=== PATIENT | male | born 1995 | race Caucasian/White ===

== ENCOUNTER 2021-11-27 09:59 | Emergency (ER) | payer OTHER ==
[~2021-11-27] VITALS: Ht 172.7 cm; Wt 73.4 kg
--- NOTE | 2021-11-27 10:32 | PHYS DOC ---
Past History Past Surgical History: Other Additional Past Surgical Histo: JAW FX REPAIR Additional Smoking Information: 1/2 PACK Alcohol Use: Rarely General Adult EDM: Chief Complaint: UPPER EXTREMITY PAIN HPI: HPI: Patient is a 26-year-old male who presents to the emergency department for right shoulder and elbow pain after falling yesterday. Patient reports that he tripped in the yard and fell. Patient is rating his pain 6 out of 10. No treatment prior to arrival. Patient had a positive Covid exposure and woke up today with generalized body aches, nonproductive cough, nausea, headache. Patient denies any fevers, shortness of breath. He denies any decreased sensation in his extremity but reports decreased extension of his right elbow. Review of Systems: Review of Systems: 14 body systems of the review of systems have been reviewed. See HPI for pertinent positive and negative responses, otherwise all other systems are negative, nonpertinent or noncontributory Allergies: Allergies: Allergies Coded Allergies Type Severity Reaction Last Updated Verified No Known Drug Allergies 11/27/21 No Physical Exam: PE: Constitutional: Well developed, well nourished, no acute distress, non-toxic appearance. [] HENT: Normocephalic, atraumatic, bilateral external ears normal, oropharynx moist, no oral exudates, nose normal. [] Eyes: PERRL, EOMI, conjunctiva normal, no discharge. [] Neck: Normal range of motion, no tenderness, supple, no stridor. [] Cardiovascular:Heart rate regular rhythm, no murmur [] Lungs & Thorax: Bilateral breath sounds clear to auscultation [] Abdomen: Bowel sounds normal, soft, no tenderness, no masses, no pulsatile masses. [] Skin: Warm, dry, no erythema, no rash. [] Back: Normal range of motion Extremities: No tenderness, no cyanosis, no clubbing, ROM intact, no edema. [] Right upper extremity: Pain with palpation to right scapula, no obvious deformity, decreased extension to right elbow, range of motion intact shoulder and wrist, neuro intact Neurologic: Alert and oriented X 3, normal motor function, normal sensory function, no focal deficits noted. [] Psychologic: Affect normal, judgement normal, mood normal. [] Current Patient Data: Vital Signs: Vital Signs Date Time Temp Pulse Resp B/P (MAP) Pulse Ox O2 Delivery O2 Flow Rate FiO2 11/27/21 10:10 98.4 100 20 123/72 (89) 98 Room Air EKG: EKG: [] Radiology/Procedures: Radiology/Procedures: []PROCEDURE: SHOULDER 2+V RIGHT EXAMINATION: XR SHOULDER_RIGHT 2+ VIEWS CLINICAL HISTORY: Fall. TECHNIQUE: XR SHOULDER_RIGHT 2+ VIEWS COMPARISON: None FINDINGS/ IMPRESSION: Glenohumeral and acromioclavicular joints maintained no definitive evidence of acute fracture. Subtle irregular density projected along the medial aspect of the proximal humeral diaphysis only visualized on image 2, nonspecific. Mild soft tissue swelling overlying the acromioclavicular joint. Electronically signed by: Johnson Graham DO (11/27/2021 12:16 PM) [id number] DICTATED AND SIGNED BY: JOHNSON GRAHAM DO DATE: 11/27/21 1211 CC: MAGGIE BURROWS MD; MAINOR [employer] APRN ~MTH0 0 PROCEDURE: ELBOW RIGHT 3V EXAMINATION: XR ELBOW COMPLETE_RIGHT 3+ VIEWS CLINICAL HISTORY: Fall. TECHNIQUE: XR ELBOW COMPLETE_RIGHT 3+ VIEWS COMPARISON: None FINDINGS/ IMPRESSION: Joint spaces and alignment maintained. No acute fracture. Soft tissue swelling along the posterior aspect of the distal arm and elbow without evidence of joint effusion. Electronically signed by: Johnson Graham DO (11/27/2021 12:18 PM) [id number] DICTATED AND SIGNED BY: JOHNSON GRAHAM DO DATE: 11/27/21 1216 CC: MAGGIE BURROWS MD; MAINOR [employer] APRN ~MTH0 0 Heart Score: C/O Chest Pain: N/A Risk Factors: Risk Factors: DM, Current or recent (<one month) smoker, HTN, HLP, family history of CAD, obesity. Risk Scores: Score 0 - 3: 2.5% MACE over next 6 weeks - Discharge Home Score 4 - 6: 20.3% MACE over next 6 weeks - Admit for Clinical Observation Score 7 - 10: 72.7% MACE over next 6 weeks - Early Invasive Strategies Course & Med Decision Making: Course & Med Decision Making Pertinent Labs and Imaging studies reviewed. (See chart for details) Patient presents to the emergency department following a fall that occurred yesterday. He is reporting right shoulder and elbow pain. Imaging was performed that showed no acute findings. Patient states that he also woke up this morning with Covid symptoms and had a positive Covid exposure, he will be tested in the emergency department for COVID-19. He will be notified of those results when they become available in approximately 2 days. Advised to self isolate until he receives these results. Imaging showed no acute findings. Patient shoulder placed in a sling. Patient advised to take anti-inflammatory medications and apply ice. I discussed with patient all findings and diagnostic testing as well as the need to follow-up with PCP for further evaluation and treatment or return to the ER if any new or worsening symptoms. Strict return precautions were also discussed at length. Patient voiced understanding and agreement with the plan. Patient is hemodynamically stable at the time of disp osition. Dragon Disclaimer: Danielle Disclaimer: This electronic medical record was generated, in whole or in part, using a voice recognition dictation system. Departure Departure: Impression: Primary Impression: Person under investigation for COVID-19 Additional Impression: Elbow contusion Qualified Codes: S50.01XA - Contusion of right elbow, initial encounter Disposition: HOME / SELF CARE / HOMELESS Condition: GOOD Referrals: MAGGIE BURROWS MD (PCP) Patient Instructions: Cough, Adult, Elbow Contusion Additional Instructions: You were seen in the emergency department following a fall and Covid symptoms. Imaging performed of your shoulder and elbow showed no acute findings. Your arm was placed in a sling for comfort. Please wear this as needed. You can take anti-inflammatory medications like ibuprofen or naproxen for your pain you can also take Tylenol. Please apply ice. We tested you in the emergency department for COVID-19 and you will be notified of those results when they become available in approximately 1 to 2 days. Please self isolate until you receive these results. Follow-up with your primary care provider tomorrow regarding your ER visit. Please return to the emergency department if you develop worsening of your arm pain, decreased range of motion, decreased sensation in your extremity, high fevers refractory to treatment, shortness of breath, chest pain, tractable nausea or vomiting. MAINOR [employer] ACID ADJUSTER Nov 27, 2021 10:32
--- NOTE | 2021-11-27 12:18 | RAD ---
EXAMINATION: XR SHOULDER_RIGHT 2+ VIEWS CLINICAL HISTORY: Fall. TECHNIQUE: XR SHOULDER_RIGHT 2+ VIEWS COMPARISON: None FINDINGS/ IMPRESSION: Glenohumeral and acromioclavicular joints maintained no definitive evidence of acute fracture. Subtle irregular density projected along the medial aspect of the proximal humeral diaphysis only visualize d on image 2, nonspecific. Mild soft tissue swelling overlying the acromioclavicular joint. Electronically signed by: Johnson Gomes DO (11/27/2021 12:16 PM) [id number]
--- NOTE | 2021-11-27 12:21 | RAD ---
EXAMINATION: XR ELBOW COMPLETE_RIGHT 3+ VIEWS CLINICAL HISTORY: Fall. TECHNIQUE: XR ELBOW COMPLETE_RIGHT 3+ VIEWS COMPARISON: None FINDINGS/ IMPRESSION: Joint spaces and alignment maintained. No acute fracture. Soft tissue swelling along the posterior as pect of the distal arm and elbow without evidence of joint effusion. Electronically signed by: Johnson Gomes DO (11/27/2021 12:18 PM) [id number]
[2021-11-27 12:44] VITALS: BP 126/79
== END 2021-11-27 12:44 | disposition home or self-care (01) ==
LOC: ER 09:59
DX: U07.1 COVID-19 (principal); S50.01XA Contusion of right elbow, initial encounter; M25.511 Pain in right shoulder; F17.200 Nicotine dependence, unspecified, uncomplicated; W01.0XXA Fall on same level from slipping, tripping and stumbling without subsequent striking against object, initial encounter; Y93.89 Activity, other specified; Y92.89 Other specified places as the place of occurrence of the external cause; Y99.8 Other external cause status
CPT/HCPCS: 73030; 73080; 99284; C9803; U0003